=== PATIENT | male | born 1950 | race Caucasian/White ===

== ENCOUNTER 2019-01-19 13:08 | Inpatient (IN) | payer MEDICAID, OTHER ==
[~2019-01-19] VITALS: Ht 175.3 cm; Wt 95.6 kg
[2019-01-19 13:14] VITALS: Ht 175.3 cm; Wt 95.6 kg
[2019-01-19] MEDS ORDERED: CEFTRIAXONE 1 GM/50 ML (PMX) 50 ML IVPB STA (13:31)
[2019-01-19] MEDS ORDERED: SODIUM CHLORIDE 0.9% 1L BAG IV* STA (13:31)
[2019-01-19] MEDS ORDERED: ACETAMINOPHEN 325 MG TAB PO STA (13:31)
--- NOTE | 2019-01-19 13:46 | ERD ---
ER Documentation Chief Complaint Chief Complaint 3 DAYS AGO BACK PAIN, URINAY INCONTINENCE, WEAKNESS HPI 68-year-old male presents the emergency room complaining of generalized weakness. Patient states over the last 2 days he has been having a fever, dysuria and urinary frequency and significant weakness. He reports no chest pain, shortness of breath. He reports no focal weakness or numbness. Patient is not having urinary incontinence (as above in the nursing note), but is having urinary frequency. He also reports that 2 days ago he had back pain in the lower part of his back that is now resolved. ROS All systems reviewed and are negative except as per history of present illness. Medications Home Meds Reported Medications Losartan Potassium* (Losartan Potassium*) 50 Mg Tablet, 50 MG PO DAILY, TAB 01/19/19 Allergies Allergies: Coded Allergies: No Known Allergy (Unverified , 01/19/19) Physical Exam Vitals Vital Signs Date Temp Pulse Resp B/P (MAP) Pulse Ox O2 O2 Flow FiO2 Time Delivery Rate 01/19/19 101 18 125/83 97 Room Air 14:30 (97) 01/19/19 Nasal 2 13:40 Cannula 01/19/19 103.2 115 18 137/74 94 13:14 (95) Physical Exam GENERAL: Ill-appearing 68-year-old HEENT: Pupils equal, round, and reactive to light. EOMI. There is no scleral icterus. NECK: C-spine is soft and supple, there is no meningismus. There is no cervical lymphadenopathy. LUNGS: Clear to auscultation bilaterally. There are no rales, wheezes or rhonchi. HEART: Regular rate and rhythm, no murmurs, clicks, rubs or gallops. ABDOMEN: Soft, non-tender, non-distended. There are bowel sounds in all four quadrants. No rebound or guarding. EXTREMITIES: There is no peripheral cyanosis or edema. No focal swelling or erythema. Back: No midline spinal tenderness or evidence of abscess. NEURO: The patient moves all four extremities with 5/5 strength. Cranial nerves II - XII are intact. Normal gait. Alert and oriented SKIN: There is no apparent rash or petechiae. HEME/LYMPHATIC: There is no evidence of excessive bruising or lymphedema. PSYCHIATRIC: The patient does not appear anxious or depressed. Result Diagram: 01/19/19 1344 01/19/19 1344 Results 24 hrs Laboratory Tests Test 01/19/19 13:44 01/19/19 13:47 White Blood Count 8.7 10^3/ul Red Blood Count 4.63 10^6/ul Hemoglobin 14.6 g/dl Hematocrit 42.4 % Mean Corpuscular Volume 91.6 fl Mean Corpuscular Hemoglobin 31.5 pg Mean Corpuscular Hemoglobin Concent 34.4 g/dl Red Cell Distribution Width 12.8 % Platelet Count 151 10^3/UL Mean Platelet Volume 10.1 fl Immature Granulocytes % 0.700 % Neutrophils % 82.0 % Lymphocytes % 7.3 % Monocytes % 9.7 % Eosinophils % 0.0 % Basophils % 0.3 % Nucleated Red Blood Cells % 0.0 /100WBC Immature Granulocytes # 0.060 10^3/ul Neutrophils # 7.2 10^3/ul Lymphocytes # 0.6 10^3/ul Monocytes # 0.9 10^3/ul Eosinophils # 0.0 10^3/ul Basophils # 0.0 10^3/ul Nucleated Red Blood Cells # 0.0 10^3/ul Prothrombin Time 13.1 Sec Prothrombin Time Ratio 1.0 INR International Normalized Ratio 0.98 Activated Partial Thromboplast Time 30.6 Sec Urine Color VIOLET Urine Clarity CLOUDY Urine pH 5.0 Urine Specific [place] 1.028 Urine Ketones TRACE mg/dL Urine Nitrite NEGATIVE mg/dL Urine Bilirubin NEGATIVE mg/dL Urine Urobilinogen 1+ mg/dL Urine Leukocyte Esterase NEGATIVE Dav/ul Urine Microscopic RBC 28 /HPF Urine Microscopic WBC 4 /HPF Urine Mucus MODERATE /HPF Urine Hemoglobin NEGATIVE mg/dL Urine Glucose NEGATIVE mg/dL Urine Total Protein 2+ mg/dl Sodium Level 136 mmol/L Potassium Level 3.8 mmol/L Chloride Level 99 mmol/L Carbon Dioxide Level 26 mmol/L Anion Gap 11 Blood Urea Nitrogen 22 mg/dl Creatinine 1.17 mg/dl Est Glomerular Filtrat Rate mL/min > 60 mL/min Glucose Level 155 mg/dl Calcium Level 8.7 mg/dl Total Bilirubin 1.0 mg/dl Direct Bilirubin 0.00 mg/dl Indirect Bilirubin 1.0 mg/dl Aspartate Amino Transf (AST/SGOT) 69 IU/L Alanine Aminotransferase (ALT/SGPT) 52 IU/L Alkaline Phosphatase 49 IU/L Troponin I < 0.012 ng/ml Total Protein 7.8 g/dl Albumin 4.2 g/dl Globulin 3.60 g/dl Albumin/Globulin Ratio 1.16 POC Venous Lactate 1.5 mmol/L Current Medications Medications Dose Sig/Enrike Start Time Status Last (Trade) Ordered Route PRN Stop Time Admin Dose Reason Admin Sodium 2,840 ml BOLUS OVER 2 01/19/19 DC 01/19/19 Chloride HOURS STAT 13:31 13:50 (NS) IV* 01/19/19 13:33 650 mg ONCE STAT 01/19/19 DC 01/19/19 Acetaminophen PO 13:31 13:50 (Tylenol 01/19/19 13:33 Tab) Ceftriaxone 50 ml @ ONCE STAT 01/19/19 DC 01/19/19 Sodium 100 mls/hr IVPB 13:31 13:50 01/19/19 14:00 Procedures/MDM Patient was taken to a room, seen and evaluated. Comfort measures were ini tiated. Code sepsis was initiated Diagnostic tests were ordered and reviewed. 3 LEAD RHYTHM STRIP: Normal sinus rhythm without ectopy EK lead EKG reviewed by myself: Sinus tachycardia Leftward axis deviation, right bundle branch block Nonspecific ST changes throughout the EKG Impression: Abnormal EKG RADIOLOGY: Reviewed with the radiologist CONSULTATION: Hospitalist was notified for admission REEVALUATION: 1545: Diagnostic tests were appreciated including the negative troponin and abnormal chest x-ray. Antibiotics have been initiated for likely community-acquired pneumonia. On reassessment, patient remains hemodynamically stable with no chest pain or shortness of breath. Patient appears to have continued generalized weakness. After discussion of the diagnostic test with the family, decision was made for admission. MEDICAL DECISION MAKIN-year-old male presents to the emergency department generalized weakness and a fever. Diagnostic work-up focused on the possibility of urinary tract infection, pneumonia and other septic concerns. Overall, patient does have an abnormal chest x-ray concerning for possibility of pneumonia. His lactate is less than 2 and he does not appear to be severely septic as he remains hemodynamically stable. He also has a markedly abnormal EKG, but a negative troponin and no chest pain or shortness of breath and therefore I doubt very much this is an acute cardiac issue. Patient will be admitted to the hospital for further supportive management, IV antibiotics and further treatment. Departure Diagnosis: Primary Impression: Pneumonia Condition: ESTHER Woodward Jan 19, 2019 13:46
[2019-01-19] MEDS ORDERED: LOSA50TA14 PO (14:21)
[2019-01-19] MEDS ORDERED: ACETAMINOPHEN 325 MG TAB PO PRN (16:00)
[2019-01-19] MEDS ORDERED: ONDANSETRON 4 MG INJ IV PRN (16:00)
--- NOTE | 2019-01-19 16:35 | HP ---
Date/Time of Note Date/Time of Note DATE: 01/19/19 TIME: 16:35 Assessment/Plan VTE Prophylaxis Pharmacological prophylaxis: LMWH Lines/Catheters IV Catheter Type (from [facility]): Saline Lock Assessment/Plan Hospital Course 68-year-old male with comorbidities including hypertension and obesity who presented to the emergency room with generalized weakness and febrile illness with evidence of sepsis with febrile illness and tachycardia with underlying pul monary infiltrate evident on chest x-ray, who will be admitted to inpatient setting for further treatment and evaluation. 1. Sepsis with febrile illness and tachycardia, with underlying pulmonary i nfiltrate, present on admission. Continue the patient on antimicrobials. Pancultures have been obtained. Continue IV hydration. Monitor for early signs of septic shock. 2. Community-acquired pneumonia. Continue the patient on ceftriaxone plus Zithromax. Supplemental oxygen if needed. 3. Hypertension. Resume antihypertensives. 4. Obesity. BMI more than 30 kg/m. Obtain A1c and fasting lipid panel. Advised lifestyle modification. Plan: The patient will be admitted to inpatient telemetry floor. The patient will be started on a low-cholesterol diet. The patient will be started on DVT prophylaxis. The patient will remain a full code. Activities will be as tolerated. The rest of the patient's management will be based on the clinical course and the results of diagnostic studies. Based on the patient's clinical presentation, he most probably requires at least 1 midnight's stay for further management and evaluation of his clinical presentation. The patient was seen in collaboration with Dr. Adler. The patient's family was given a letter to the airline indicating that the patient is hospitalized and to allow him to postpone his scheduled travel on 01/20/2019. Result Diagram: 01/19/19 1344 01/19/19 1344 Results 24hrs Laboratory Tests Test 01/19/19 13:44 01/19/19 13:47 01/19/19 15:56 White Blood Count 8.7 Red Blood Count 4.63 L Hemoglobin 14.6 Hematocrit 42.4 Mean Corpuscular Volume 91.6 Mean Corpuscular Hemoglobin 31.5 Mean Corpuscular Hemoglobin Concent 34.4 Red Cell Distribution Width 12.8 Platelet Count 151 Mean Platelet Volume 10.1 Immature Granulocytes % 0.700 H Neutrophils % 82.0 H Lymphocytes % 7.3 L Monocytes % 9.7 Eosinophils % 0.0 Basophils % 0.3 Nucleated Red Blood Cells % 0.0 Immature Granulocytes # 0.060 H Neutrophils # 7.2 Lymphocytes # 0.6 L Monocytes # 0.9 Eosinophils # 0.0 Basophils # 0.0 Nucleated Red Blood Cells # 0.0 Prothrombin Time 13.1 Prothrombin Time Ratio 1.0 INR International Normalized Ratio 0.98 Activated Partial Thromboplast Time 30.6 Urine Color VIOLET Urine Clarity CLOUDY A Urine pH 5.0 Urine Specific [place] 1.028 Urine Ketones TRACE A Urine Nitrite NEGATIVE Urine Bilirubin NEGATIVE Urine Urobilinogen 1+ H Urine Leukocyte Esterase NEGATIVE Urine Microscopic RBC 28 H Urine Microscopic WBC 4 Urine Mucus MODERATE Urine Hemoglobin NEGATIVE Urine Glucose NEGATIVE Urine Total Protein 2+ H Sodium Level 136 Potassium Level 3.8 Chloride Level 99 Carbon Dioxide Level 26 Anion Gap 11 Blood Urea Nitrogen 22 H Creatinine 1.17 Est Glomerular Filtrat Rate mL/min > 60 Glucose Level 155 Calcium Level 8.7 Total Bilirubin 1.0 Direct Bilirubin 0.00 Indirect Bilirubin 1.0 Aspartate Amino Transf (AST/SGOT) 69 H Alanine Aminotransferase (ALT/SGPT) 52 Alkaline Phosphatase 49 Troponin I < 0.012 Total Protein 7.8 Albumin 4.2 Globulin 3.60 H Albumin/Globulin Ratio 1.16 POC Venous Lactate 1.5 Lactic Acid Level 1.4 HPI/ROS Admit Date/Time Admit Date/Time Hx of Present Illness Reason for admission : Generalized weakness, febrile illness. Infiltrate on chest x-ray. This is a 68-year-old male with past medical history of hypertension. [facility] and he is scheduled to go back to [place] tomorrow on 01/20/2019. He was visiting his family in [place]. The patient started having back pain over the past 3 days and associated urinary frequency, urgency, and finally incontinence. The patient tried acupuncture therapy with relief in his back pain. But his fevers and the problem urination persisted. The patient also became progressively weak to the point where he could not walk because of weakness. The patient denied any headache. He was complaining of fevers and chills. As per the family he had a cough for the past few days. The patient denied any chest pain. The patient denied any nausea or vomiting. He denied any diarrhea, abdominal pain, hematochezia, or melena. He denied any neck rigidity. He denied any sensitivity to light or sounds. In the emergency room, the patient was noticed to be febrile with a temperature of 103.2. He was noted to be tachycardic. The patient underwent a chest x-ray that was showing a left perihilar infiltrate suggesting pneumonia. The patient underwent a CT scan of the abdomen and pelvis that was negative for any urolithiasis, obstructive uropathy, diverticulitis, or appendicitis. The patient's urinalysis was positive for microscopic RBC within negative nitrite and negative leukocyte esterase. He was treated with IV fluid bolus, Tylenol oral, and a single dose of ceftriaxone. Of note, the patient's twelve-lead EKG that was done in the emergency room showed the reading of "acute [place]." However, after reviewing with a order picker, this EKG showed a right bundle branch block and isolated ST depression. The patient's troponins were negative. ROS Constitutional: chills, fatigue, febrile Eyes: no complaints ENT: no complaints Respiratory: cough Cardiovascular: no complaints Gastrointestinal: decreased appetite Genitourinary: other (Frequency, incontinence) Musculoskeletal: no complaints Skin: no complaints Neurologic: no complaints Endocrine: polyuria Lymphatic: no complaints Psychological: no complaints Immunologic: no complaints PMH/Family/Social Past Medical History 1. Palpitations. 2. Hypertension. 3. Obesity. Medications Current Medications Ondansetron HCl (Zofran Inj) 4 mg BRIDGE ORDER PRN IV NAUSEA/VOMITING; Start 01/19/19 at 16:00; Stop 01/20/19 at 15:59 Acetaminophen (Tylenol Tab) 650 mg ER BRIDGE PRN PO .MILD PAIN 1-3 OR TEMP; Start 01/19/19 at 16:00; Stop 01/20/19 at 15:59 Coded Allergies: No Known Allergy (Unverified , 01/19/19) Past Surgical History Past Surgical Hx: no surgical history Social History The patient is visiting from [place]. 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 Alcohol Use: none Smoking Status: Former smoker Drug Use: none Exam/Review of Systems Vital Signs Vitals Vital Signs Date Temp Pulse Resp B/P (MAP) Pulse Ox O2 O2 Flow FiO2 Time Delivery Rate 01/19/19 101 18 125/83 97 Room Air 14:30 (97) 01/19/19 2 13:40 01/19/19 103.2 13:14 Exam Exam General: Obese, 68 year-old male lying in bed in no apparent distress. HEENT: Normocephalic, atraumatic. Eyes: Anicteric sclerae, conjunctivae clear. ENT: Nasal septum midline, oral mucosa is dry. Neck supple. Short and obese. Respiratory: Bilaterally diminished breath sounds. No use of accessory muscles of respiration. No adventitious breath sounds. Cardiovascular: S1, S2 heard. Regular rate and rhythm. Abdomen: Soft, nontender, and nondistended. Bowel sounds positive in all 4 quadrants. Genitourinary: Deferred. Extremities: No cyanosis, no clubbing, no edema. Peripheral pulses palpable. Neurologic: Cranial nerves II through XII grossly intact. The patient is awake, alert, and oriented. Skin: Normal skin turgor. No skin rashes. Additional Comments CXR IMPRESSION: Patchy left perihilar opacities suggesting pneumonia in the setting of reported sepsis. Calcified atherosclerosis of the thoracic aorta. CT Abdomen & Pelvis IMPRESSION: No evidence of urolithiasis, obstructive uropathy, diverticulitis or appendicitis. Diverticulosis. Fatty liver. ALON TOLEDO NP Jan 19, 2019 16:35
[2019-01-19] MEDS ORDERED: NACL 0.9% 3 ML SYG IV SCH (17:00)
[2019-01-19] MEDS ORDERED: SOD CHLORIDE 0.9% 1,000 ML IV SCH (17:00)
[2019-01-19] MEDS: AZITHROMYCIN 500MG/NS (PMX) 250 ML IVPB SCH (18:06)
[2019-01-19] MEDS ORDERED: IBUPROFEN 600 MG TAB PO ONE (19:00)
[2019-01-19 23:30] VITALS: BP 99/59; PULSE 75; RESP 18
[2019-01-20] MEDS: ONDANSETRON 4 MG INJ IV PRN (00:52)
[2019-01-20 04:11] VITALS: BP 139/76; PULSE 92; RESP 20
[2019-01-20 07:18] VITALS: BP 119/61; PULSE 85; RESP 18
[2019-01-20] MEDS: LOSARTAN 50 MG TAB PO SCH (08:15)
[2019-01-20] MEDS: ENOXAPARIN 40 MG/0.4 ML SYG SC SCH (08:19)
[2019-01-20 11:35] VITALS: BP 158/82; PULSE 96; RESP 20
[2019-01-20] MEDS ORDERED: CEFTRIAXONE 1 GM/50 ML (PMX) 50 ML IVPB SCH (14:00)
--- NOTE | 2019-01-20 15:37 | PN ---
Date/Time of Note Date/Time of Note DATE: 01/20/19 TIME: 15:33 Assessment/Plan VTE Prophylaxis Risk score (from [facility])>0 risk: 2 SCD applied (from [facility]): No SCD contraindicated: other Pharmacological prophylaxis: LMWH Lines/Catheters [facility] Saline Lock Urinary Cath still in place: No Assessment/Plan Hospital Course Assessment and plan 1. Sepsis. - Likely secondary to community-acquired pneumonia. - Continue antibiotic. - Patient improving. - Antipyretics as needed. - Follow-up on cultures. 2. Community-acquired pneumonia. - continue abx 3. Hypertension. - Continue antihypertensives. 4. Obesity. - Weight reduction was advised Disposition plan. Appears to be improving. Continue antibiotics. Follow-up on cultures. Anticipate discharge within the next 24 hours from stable. Discussed POC with Dr. Prajapati Result Diagram: 01/20/19 0530 01/20/19 0530 Results 24hrs Laboratory Tests Test 01/19/19 15:56 01/19/19 21:02 01/20/19 05:30 Lactic Acid Level 1.4 0.9 Troponin I 0.018 0.029 White Blood Count 7.3 Red Blood Count 3.99 L Hemoglobin 12.5 L Hematocrit 36.9 L Mean Corpuscular Volume 92.5 Mean Corpuscular Hemoglobin 31.3 Mean Corpuscular Hemoglobin Concent 33.9 Red Cell Distribution Width 13.0 Platelet Count 124 L Mean Platelet Volume 10.2 Immature Granulocytes % 1.000 H Neutrophils % 87.0 H Lymphocytes % 5.9 L Monocytes % 5.7 Eosinophils % 0.1 Basophils % 0.3 Nucleated Red Blood Cells % 0.0 Immature Granulocytes # 0.070 H Neutrophils # 6.4 Lymphocytes # 0.4 L Monocytes # 0.4 Eosinophils # 0.0 Basophils # 0.0 Nucleated Red Blood Cells # 0.0 Sodium Level 139 Potassium Level 3.8 Chloride Level 109 # Carbon Dioxide Level 22 Anion Gap 8 Blood Urea Nitrogen 20 Creatinine 0.87 Est Glomerular Filtrat Rate mL/min > 60 Glucose Level 124 Calcium Level 7.9 L Phosphorus Level 2.6 Magnesium Level 2.4 Total Bilirubin 0.7 Direct Bilirubin 0.00 Indirect Bilirubin 0.7 Aspartate Amino Transf (AST/SGOT) 59 H Alanine Aminotransferase (ALT/SGPT) 48 Alkaline Phosphatase 42 Creatine Kinase 739 H Creatine Kinase Index 0.3 Creatinine Kinase MB (Mass) 2.44 H Total Protein 6.4 # Albumin 3.2 #L Globulin 3.20 Albumin/Globulin Ratio 1.00 Triglycerides Level 136 Cholesterol Level 145 LDL Cholesterol, Calculated 97 HDL Cholesterol 21 L Cholesterol/HDL Ratio 6.9 Procalcitonin 0.42 H Subjective 24 Hr Interval Summary Free Text/Dictation reports better breathing. family at bedside. Exam/Review of Systems Exam Vitals Vital Signs Date Temp Pulse Resp B/P (MAP) Pulse Ox O2 O2 Flow FiO2 Time Delivery Rate 01/20/19 98.0 96 20 158/82 97 Room Air 11:35 (107) 01/19/19 2 13:40 Intake and Output 01/19/19 01/19/19 01/20/19 1515:00 23:00 07:00 IntakeIntake Total 100 ml OutputOutput Total 950 ml BalanceBalance -850 ml Constitutional: alert, oriented Psych: nl mood/affect Head: normocephalic Neck: supple, non-tender Respiratory: other (minimally congested left lung field ) Cardiovascular: regular rate and rhythm Gastrointestinal: soft, non-tender 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: PODIATRY TEACHER II-XII intact, nl mental status, nl speech Results Results 24hrs Laboratory Tests Test 01/19/19 15:56 01/19/19 21:02 01/20/19 05:30 Lactic Acid Level 1.4 0.9 Troponin I 0.018 0.029 White Blood Count 7.3 Red Blood Count 3.99 L Hemoglobin 12.5 L Hematocrit 36.9 L Mean Corpuscular Volume 92.5 Mean Corpuscular Hemoglobin 31.3 Mean Corpuscular Hemoglobin Concent 33.9 Red Cell Distribution Width 13.0 Platelet Count 124 L Mean Platelet Volume 10.2 Immature Granulocytes % 1.000 H Neutrophils % 87.0 H Lymphocytes % 5.9 L Monocytes % 5.7 Eosinophils % 0.1 Basophils % 0.3 Nucleated Red Blood Cells % 0.0 Immature Granulocytes # 0.070 H Neutrophils # 6.4 Lymphocytes # 0.4 L Monocytes # 0.4 Eosinophils # 0.0 Basophils # 0.0 Nucleated Red Blood Cells # 0.0 Sodium Level 139 Potassium Level 3.8 Chloride Level 109 # Carbon Dioxide Level 22 Anion Gap 8 Blood Urea Nitrogen 20 Creatinine 0.87 Est Glomerular Filtrat Rate mL/min > 60 Glucose Level 124 Calcium Level 7.9 L Phosphorus Level 2.6 Magnesium Level 2.4 Total Bilirubin 0.7 Direct Bilirubin 0.00 Indirect Bilirubin 0.7 Aspartate Amino Transf (AST/SGOT) 59 H Alanine Aminotransferase (ALT/SGPT) 48 Alkaline Phosphatase 42 Creatine Kinase 739 H Creatine Kinase Index 0.3 Creatinine Kinase MB (Mass) 2.44 H Total Protein 6.4 # Albumin 3.2 #L Globulin 3.20 Albumin/Globulin Ratio 1.00 Triglycerides Level 136 Cholesterol Level 145 LDL Cholesterol, Calculated 97 HDL Cholesterol 21 L Cholesterol/HDL Ratio 6.9 Procalcitonin 0.42 H Medications Medication Current Medications Ondansetron HCl (Zofran Inj) 4 mg BRIDGE ORDER PRN IV NAUSEA/VOMITING; Start 01/19/19 at 16:00; Stop 01/20/19 at 15:59 Acetaminophen (Tylenol Tab) 650 mg ER BRIDGE PRN PO .MILD PAIN 1-3 OR TEMP Last administered on 01/20/19at 03:44; Admin Dose 650 MG; Start 01/19/19 at 16:00; Stop 01/20/19 at 15:59 IV Flush (NS 3 ml) 3 ml PER PROTOCOL IV ; Start 01/19/19 at 17:00 Ondansetron HCl (Zofran Inj) 4 mg Q6H PRN IV NAUSEA/VOMITING Last administered on 01/20/19at 00:52; Admin Dose 4 MG; Start 01/19/19 at 17:00 Enoxaparin Sodium (Lovenox) 40 mg DAILY SC Last administered on 01/20/19at 08:19; Admin Dose 40 MG; Start 01/20/19 at 09:00 Azithromycin 250 ml @ 250 mls/hr Q24H IVPB Last administered on 01/19/19at 18:06; Admin Dose 250 MLS/HR; Start 01/19/19 at 17:00 Ceftriaxone Sodium 50 ml @ 100 mls/hr Q24H IVPB Last administered on 01/20/19at 13:27; Admin Dose 100 MLS/HR; Start 01/20/19 at 14:00 Losartan Potassium (Cozaar) 50 mg DAILY PO Last administered on 01/20/19at 08:15; Admin Dose 50 MG; Start 01/20/19 at 09:00 Ibuprofen (Motrin) 200 mg Q6H PRN PO MILD PAIN(1-3) OR TEMP>38C; Start 01/19/19 at 18:30 MICHAEL PRADO NP Jan 20, 2019 15:37
[2019-01-20 15:52] VITALS: BP 182/88; PULSE 110; RESP 20
[2019-01-20] MEDS: IBUPROFEN 200 MG TAB PO PRN ×2 (16:04→23:41)
[2019-01-20] MEDS ORDERED: LEVALBUTEROL (NEB) 1.25 MG/0.5 ML AMP HHN PRN (16:30)
[2019-01-20 16:59] VITALS: BP 141/86; PULSE 109
[2019-01-20] MEDS: AZITHROMYCIN 500MG/NS (PMX) 250 ML IVPB SCH (18:13)
[2019-01-20 20:00] VITALS: BP 123/63; PULSE 95; RESP 20
[2019-01-20] MEDS: IPRATROPIUM (NEB) 0.5 MG/2.5 ML AMP HHN SCH (20:14)
[2019-01-20] MEDS: LEVALBUTEROL (NEB) 1.25 MG/0.5 ML AMP HHN SCH (20:14)
--- NOTE | 2019-01-20 21:53 | CONS ---
DATE OF ADMISSION: 01/19/2019 DATE OF CONSULTATION: 01/20/2019 TYPE OF CONSULTATION: Infectious Disease. REASON FOR CONSULTATION: Antibiotic management. HISTORY OF PRESENT ILLNESS: Vasile Boswell is a 68-year-old male who was admitted on the complaining of generalized weakness. He complains of 3 days of back pain, urinary incontinence and weakness. Ov er the past 2 days, he has been having a fever, dysuria and urinary frequency. He has no chest pain or shortness of breath. He is not having urinary incontinence, but is having frequency. On admissio n, his white count was 8.7, H and H 14.6 and 42.4, platelet count 151,000. BUN and creatinine 22/1.1 7, glucose of 155 with 82% neutrophils. His urinalysis is negative for leukocyte esterase and he was started on ceftriaxone. The patient's diagnostic workup focused on urinary tract infection of the s eptic concerns. The patient has an abnormal chest x-ray with a possibility of pneumonia. His chest x-ray showed patchy left perihilar opacities. Repeat chest x-ray showed interval increase in left up per lobe consolidation, scattered atelectasis versus minimal infiltrates in the left lower lobe, elev ated right hemidiaphragm. A CT scan of the abdomen and pelvis showed no evidence of urolithiasis, ob structive uropathy, diverticulitis or appendicitis. The patient has sepsis, likely secondary to comm unity-acquired pneumonia. He is on antibiotic therapy. He is hypertensive and obese, improving at t his point. ANCILLARY LABORATORY DATA: White count today 7.3. MEDICATIONS: 1. Azithromycin. 2. Ceftriaxone. PLAN: We will continue him on this therapy. I will dictate my findings to the hospitalist. Dictated By: SANGITA MARTE MD, JD/PERNELL Conf#: [id number] DID#: [id number]
[2019-01-21] VITALS (7 sets, daily range): BP systolic 105–164; BP diastolic 65–92; PULSE 79–104; RESP 18–20
[2019-01-21] MEDS: ONDANSETRON 4 MG INJ IV PRN (02:54)
[2019-01-21] MEDS: IPRATROPIUM (NEB) 0.5 MG/2.5 ML AMP HHN SCH ×4 (08:16→20:52)
[2019-01-21] MEDS: LEVALBUTEROL (NEB) 1.25 MG/0.5 ML AMP HHN SCH ×4 (08:16→20:51)
[2019-01-21] MEDS: IBUPROFEN 200 MG TAB PO PRN ×2 (08:33→16:12)
[2019-01-21] MEDS: LOSARTAN 50 MG TAB PO SCH (08:34)
[2019-01-21] MEDS: ENOXAPARIN 40 MG/0.4 ML SYG SC SCH (09:36)
--- NOTE | 2019-01-21 14:09 | PN ---
Date/Time of Note Date/Time of Note DATE: 01/21/19 TIME: 14:05 Assessment/Plan VTE Prophylaxis Risk score (from [facility] [place])>0 risk: 5 SCD applied (from [facility] [place]): No SCD contraindicated: other Pharmacological prophylaxis: LMWH Lines/Catheters IV [facility] Type (from [facility] Saline Lock Urinary Cath still in place: No Assessment/Plan Hospital Course Assessment and plan 1. Sepsis. - Likely secondary to community-acquired pneumonia. - Continue antibiotic. - with worse chest imaging - Antipyretics as needed. - Follow-up on cultures. - ID consult following 2. Community-acquired pneumonia. - continue abx - trade specialist consulted 3. respiratory failure secondary to #2 - continue with breathing tx - IS/CPT 3. Hypertension. - Continue antihypertensives. 4. Obesity. - Weight reduction was advised Disposition plan. Continue antibiotics. with worse breathing. continue breathing tx. f/u pulmonary recommendations. antipyretics for fever. monitor for improvement Discussed POC with Dr. Prajapati Result Diagram: 01/21/19 0507 01/21/19 0507 Results 24hrs Laboratory Tests Test 01/20/19 16:39 01/20/19 16:56 01/20/19 17:14 01/21/19 05:07 Lactic Acid Level 1.6 Bedside Glucose 128 Troponin I 0.019 White Blood Count 6.7 Red Blood Count 4.36 L Hemoglobin 13.6 L Hematocrit 39.9 L Mean Corpuscular Volume 91.5 Mean Corpuscular 31.2 Hemoglobin Mean Corpuscular 34.1 Hemoglobin Concent Red Cell Distribution 12.9 Width Platelet Count 138 L Mean Platelet Volume 10.7 H Immature Granulocytes % 1.200 H Neutrophils % 81.7 H Lymphocytes % 11.3 L Monocytes % 5.4 Eosinophils % 0.1 Basophils % 0.3 Nucleated Red Blood 0.0 Cells % Immature Granulocytes # 0.080 H Neutrophils # 5.5 Lymphocytes # 0.8 Monocytes # 0.4 Eosinophils # 0.0 Basophils # 0.0 Nucleated Red Blood 0.0 Cells # Sodium Level 136 Potassium Level 3.9 Chloride Level 103 Carbon Dioxide Level 25 Anion Gap 8 Blood Urea Nitrogen 14 Creatinine 0.82 Est Glomerular Filtrat > 60 Rate mL/min Glucose Level 120 Calcium Level 8.3 L Subjective 24 Hr Interval Summary Free Text/Dictation Reports slightly better breathing from yesterday. Exam/Review of Systems Exam Vitals Vital Signs Date Temp Pulse Resp B/P (MAP) Pulse Ox O2 O2 Flow FiO2 Time Delivery Rate 01/21/19 86 18 95 21 13:05 01/21/19 99.6 115/65 Room Air 11:46 (82) 01/19/19 2 13:40 Intake and Output 01/20/19 01/20/19 01/21/19 1515:00 23:00 07:00 IntakeIntake Total 410 ml 800 ml OutputOutput Total 200 ml 370 ml 1050 ml BalanceBalance 210 ml -370 ml -250 ml Exam Constitutional: alert, oriented Psych: nl mood/affect Head: normocephalic Neck: supple, non-tender Respiratory: other (minimally congested left lung field ) Cardiovascular: regular rate and rhythm Gastrointestinal: soft, non-tender 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: 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 II-XII 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, nl mental status, nl speech Results Results 24hrs Laboratory Tests Test 01/20/19 16:39 01/20/19 16:56 01/20/19 17:14 01/21/19 05:07 Lactic Acid Level 1.6 Bedside Glucose 128 Troponin I 0.019 White Blood Count 6.7 Red Blood Count 4.36 L Hemoglobin 13.6 L Hematocrit 39.9 L Mean Corpuscular Volume 91.5 Mean Corpuscular 31.2 Hemoglobin Mean Corpuscular 34.1 Hemoglobin Concent Red Cell Distribution 12.9 Width Platelet Count 138 L Mean Platelet Volume 10.7 H Immature Granulocytes % 1.200 H Neutrophils % 81.7 H Lymphocytes % 11.3 L Monocytes % 5.4 Eosinophils % 0.1 Basophils % 0.3 Nucleated Red Blood 0.0 Cells % Immature Granulocytes # 0.080 H Neutrophils # 5.5 Lymphocytes # 0.8 Monocytes # 0.4 Eosinophils # 0.0 Basophils # 0.0 Nucleated Red Blood 0.0 Cells # Sodium Level 136 Potassium Level 3.9 Chloride Level 103 Carbon Dioxide Level 25 Anion Gap 8 Blood Urea Nitrogen 14 Creatinine 0.82 Est Glomerular Filtrat > 60 Rate mL/min Glucose Level 120 Calcium Level 8.3 L Medications Medication Current Medications IV Flush (NS 3 ml) 3 ml PER PROTOCOL IV ; Start 01/19/19 at 17:00 Ondansetron HCl (Zofran Inj) 4 mg Q6H PRN IV NAUSEA/VOMITING Last administered on 7/2/19at 02:54; Admin Dose 4 MG; Start 01/19/19 at 17:00 Enoxaparin Sodium (Lovenox) 40 mg DAILY SC Last administered on 01/21/19 09:36; Admin Dose 40 MG; Start 01/20/19 at 09:00 Azithromycin 250 ml @ 250 mls/hr Q24H IVPB Last administered on 01/20/19 18:13; Admin Dose 250 MLS/HR; Start 01/19/19 at 17:00 Losartan Potassium (Cozaar) 50 mg DAILY PO Last administered on 01/21/19 08:34; Admin Dose 50 MG; Start 01/20/19 at 09:00 Ibuprofen (Motrin) 200 mg Q6H PRN PO MILD PAIN(1-3) OR TEMP>38C Last administered on 01/21/19 08:33; Admin Dose 200 MG; Start 01/19/19 at 18:30 Levalbuterol (Xopenex Neb) 1.25 mg Q4H RESP THERAPY PRN HHN sob; Start 01/20/19 at 16:30 Ipratropium [place] (Atrovent 0.02% (Neb)) 0.5 mg Q4HWA RESP THERAPY HHN Last administered on 01/21/19 12:55; Admin Dose 0.5 MG; Start 01/20/19 at 17:00 Levalbuterol (Xopenex Neb) 1.25 mg Q4HWA RESP THERAPY HHN Last administered on 01/21/19 12:55; Admin Dose 1.25 MG; Start 01/20/19 at 17:00 Clonidine (Catapres) 0.1 mg Q4H PRN PO sbp>160; Start 01/20/19 at 16:30 Cefepime HCl 50 ml @ 100 mls/hr Q12 IVPB ; Start 01/21/19 at 21:00 MICHAEL PRADO NP Jan 21, 2019 14:09
--- NOTE | 2019-01-21 14:47 | CONS ---
Assessment/Plan Assessment/Plan Hospital Course (Demo Recall) Patient is awake looks comfortable spiked fever of 102.8 this morning WBC 6.7 platelets 138 neutrophils 81.7 BUN 14 creatinine 0.82 Blood cultures since admission negative urine culture grew E. coli Chest x-ray revealed left upper lobe consolidation Antimicrobials: Cefepime, Zithromax Physical examination: Well-developed obese elderly man who is awake in no distress. Head atraumatic normocephalic neck is supple chest rise symmetrical breath sounds diminished bases. Heart: S1-S2. Abdomen obese soft bowel sounds present. Extremities without cyanosis. Assessment: 1. Sepsis, present on admission 2. UTI 3. Pneumonia 4. Hypertension Plan: Clinically stable. Pending repeat blood cultures, continue antibiotics, follow repeat chest x-ray Consultation Date/Type/Reason Admit Date/Time Jan 19, 2019 at 15:53 Initial Consult Date Type of Consult id Date/Time of Note DATE: 01/21/19 TIME: 14:47 Exam/Review of Systems Exam Vitals Vital Signs Date Temp Pulse Resp B/P (MAP) Pulse Ox O2 O2 Flow FiO2 Time Delivery Rate 01/21/19 86 18 95 21 13:05 01/21/19 99.6 115/65 Room Air 11:46 (82) 01/19/19 2 13:40 Intake and Output 01/20/19 01/20/19 01/21/19 1515:00 23:00 07:00 IntakeIntake Total 410 ml 800 ml OutputOutput Total 200 ml 370 ml 1050 ml BalanceBalance 210 ml -370 ml -250 ml Results Result Diagram: 01/21/19 0507 01/21/19 0507 Results 24hrs Laboratory Tests Test 01/20/19 16:39 01/20/19 16:56 01/20/19 17:14 01/21/19 05:07 Lactic Acid Level 1.6 Bedside Glucose 128 Troponin I 0.019 White Blood Count 6.7 Red Blood Count 4.36 L Hemoglobin 13.6 L Hematocrit 39.9 L Mean Corpuscular Volume 91.5 Mean Corpuscular 31.2 Hemoglobin Mean Corpuscular 34.1 Hemoglobin Concent Red Cell Distribution 12.9 Width Platelet Count 138 L Mean Platelet Volume 10.7 H Immature Granulocytes % 1.200 H Neutrophils % 81.7 H Lymphocytes % 11.3 L Monocytes % 5.4 Eosinophils % 0.1 Basophils % 0.3 Nucleated Red Blood 0.0 Cells % Immature Granulocytes # 0.080 H Neutrophils # 5.5 Lymphocytes # 0.8 Monocytes # 0.4 Eosinophils # 0.0 Basophils # 0.0 Nucleated Red Blood 0.0 Cells # Sodium Level 136 Potassium Level 3.9 Chloride Level 103 Carbon Dioxide Level 25 Anion Gap 8 Blood Urea Nitrogen 14 Creatinine 0.82 Est Glomerular Filtrat > 60 Rate mL/min Glucose Level 120 Calcium Level 8.3 L Medications Medication Current Medications IV Flush (NS 3 ml) 3 ml PER PROTOCOL IV ; Start 01/19/19 at 17:00 Ondansetron HCl (Zofran Inj) 4 mg Q6H PRN IV NAUSEA/VOMITING Last administered on 01/21/19 02:54; Admin Dose 4 MG; Start 01/19/19 at 17:00 Enoxaparin Sodium (Lovenox) 40 mg DAILY SC Last administered on 01/21/19at 09:36; Admin Dose 40 MG; Start 01/20/19 at 09:00 Azithromycin 250 ml @ 250 mls/hr Q24H IVPB Last administered on 01/20/19at 18:13; Admin Dose 250 MLS/HR; Start 01/19/19 at 17:00 Losartan Potassium (Cozaar) 50 mg DAILY PO Last administered on 01/21/19 08:34; Admin Dose 50 MG; Start 01/20/19 at 09:00 Ibuprofen (Motrin) 200 mg Q6H PRN PO MILD PAIN(1-3) OR TEMP>38C Last administered on 01/21/19 08:33; Admin Dose 200 MG; Start 01/19/19 at 18:30 Levalbuterol (Xopenex Neb) 1.25 mg Q4H RESP THERAPY PRN HHN sob; Start 01/20/19 at 16:30 Ipratropium [place] (Atrovent 0.02% (Neb)) 0.5 mg Q4HWA RESP THERAPY HHN Last administered on 01/21/19at 12:55; Admin Dose 0.5 MG; Start 01/20/19 at 17:00 Levalbuterol (Xopenex Neb) 1.25 mg Q4HWA RESP THERAPY HHN Last administered on 01/21/19 12:55; Admin Dose 1.25 MG; Start 01/20/19 at 17:00 Clonidine (Catapres) 0.1 mg Q4H PRN PO sbp>160; Start 01/20/19 at 16:30 Cefepime HCl 50 ml @ 100 mls/hr Q12 IVPB ; Start 01/21/19 at 21:00 BARRON GRAHAM NP Jan 21, 2019 14:47
--- NOTE | 2019-01-21 14:59 | CONS ---
DATE OF ADMISSION: 01/19/2019 DATE OF CONSULTATION: 01/21/2019 TYPE OF CONSULTATION: Pulmonary. REASON FOR CONSULTATION: Shortness of breath. Thank you, Dr. Rocha, for this consultation. HISTORY OF PRESENT ILLNESS: This is a 68-year-old gentleman with no significant respiratory problems who comes in with several-day history of increasing cough, congestion, respiratory distress, found t o have a left upper lobe infiltrate with persistent fevers, but interestingly no significant leukocyt osis. The patient denies any recent travel history. However, he is from [place] and has been in the [place] for approximately 1 month. Denies any prior history of TB or TB exposure. On admission, as stated, the patient has had persistent fever, left upper lobe infiltrate. PAST MEDICAL HISTORY: As above. MEDICATIONS: Per chart. ALLERGIES: None. SOCIAL HISTORY: He is a nonsmoker, no alcohol, no history of drug use. FAMILY HISTORY: Noncontributory. SYSTEMS REVIEW: A 12-point review of systems was negative other than that mentioned above. PHYSICAL EXAMINATION: GENERAL: Elderly-appearing gentleman, appears comfortable at rest, no acute distress. VITAL SIGNS: Currently afebrile, pulse is 86, T-max is 102.8, blood pressure 115/65. NECK: Supple. No JVD or lymphadenopathy. CARDIAC: S1, S2, no added sounds or murmurs. CHEST: Diminished air entry bilaterally. ABDOMEN: Soft, nontender. No guarding or rebound. EXTREMITIES: No cyanosis, clubbing or edema. NEUROLOGIC: Generalized weakness. LABORATORIES: White count 6.7, hemoglobin 13.6, platelets 138. BUN 14, creatinine 0.82. Procalcito gabby 0.42. DIAGNOSTIC DATA: Chest x-ray shows left upper lobe infiltrates. IMPRESSION AND PLAN: Concern for possible atypical pneumonia given absence of leukocytosis and signi ficant upper lobe infiltrate. The differential does include fungal versus mycobacterial TB. PLAN: The patient will require: 1. Broadening of antibiotics. Agree with addition of cefepime. 2. Trial of steroids for possible r bronchiolitis obliterans organizing pneumonia. 3. Serology including coccidioidomycosis, Quantiferon Gold, Aspergillus precipitins and HIV testing. Dictated By: CHLOE HICKEY/PERNELL Conf#: [id number] DID#: [id number] CC: CARLOTA WATERS MD;*EndCC*
[2019-01-21] MEDS: METHYLPREDNISOLONE 40 MG INJ IV SCH ×2 (16:12→21:00)
[2019-01-21] MEDS: AZITHROMYCIN 500MG/NS (PMX) 250 ML IVPB SCH (18:14)
[2019-01-21] MEDS: CEFEPIME 1GM/50 ML (PMX) 50 ML IVPB SCH (21:00)
[2019-01-22] MEDS: METHYLPREDNISOLONE 40 MG INJ IV SCH ×4 (00:40→17:18)
[2019-01-22 03:39] VITALS: BP 113/74; PULSE 75; RESP 18
[2019-01-22 07:45] VITALS: BP 132/81; PULSE 93; RESP 19
[2019-01-22] MEDS: LOSARTAN 50 MG TAB PO SCH (08:54)
[2019-01-22] MEDS: CEFEPIME 1GM/50 ML (PMX) 50 ML IVPB SCH ×2 (08:54→20:29)
[2019-01-22] MEDS: IPRATROPIUM (NEB) 0.5 MG/2.5 ML AMP HHN SCH ×4 (09:00→19:45)
[2019-01-22] MEDS: LEVALBUTEROL (NEB) 1.25 MG/0.5 ML AMP HHN SCH ×4 (09:00→19:45)
[2019-01-22] MEDS: ENOXAPARIN 40 MG/0.4 ML SYG SC SCH (09:43)
[2019-01-22 11:54] VITALS: BP 132/78; PULSE 78; RESP 18
--- NOTE | 2019-01-22 12:37 | PN ---
Date/Time of Note Date/Time of Note DATE: 01/22/19 TIME: 12:33 Assessment/Plan VTE Prophylaxis Risk score (from [facility] [place])>0 risk: 4 SCD applied (from [facility] [place]): Yes Pharmacological prophylaxis: LMWH Lines/Catheters IV Catheter Type (from [facility]): Saline Lock Urinary Cath still in place: No Assessment/Plan Hospital Course Assessment and plan 1. Sepsis. - Likely secondary to community-acquired pneumonia. - Continue antibiotic. -- Antipyretics as needed. - Follow-up on cultures. - ID consult following 2. Community-acquired pneumonia. - continue abx - rope cutter following 3. respiratory failure secondary to #2 - continue with breathing tx - IS/CPT - CT scan of chest: There is left upper lobe patchy consolidation with associated air bronchograms. This is concerning for infectious process - f/u rope cutter recommendations 3. Hypertension. - Continue antihypertensives. 4. Obesity. - Weight reduction was advised Disposition plan. Continue antibiotics. titrate down o2. Await further improvement of respiratory status Discussed POC with Dr. Prajapati Result Diagram: 01/21/19 0507 01/21/19 0507 Subjective 24 Hr Interval Summary Free Text/Dictation sitting in chair, still reports dyspnea on exertion Exam/Review of Systems Exam Vitals Vital Signs Date Temp Pulse Resp B/P (MAP) Pulse Ox O2 O2 Flow FiO2 Time Delivery Rate 01/22/19 97.7 78 18 132/78 96 11:54 (96) 01/22/19 Room Air 03:39 01/21/19 21 20:52 01/19/19 2 13:40 Intake and Output 01/21/19 01/21/19 01/22/19 1515:00 23:00 07:00 IntakeIntake Total 480 ml 700 ml 240 ml OutputOutput Total 300 ml 200 ml 300 ml BalanceBalance 180 ml 500 ml -60 ml Exam Constitutional: alert, oriented Psych: nl mood/affect Head: normocephalic Neck: supple, non-tender Respiratory: no obvious wheezing/rhonchi Cardiovascular: regular rate and rhythm Gastrointestinal: soft, non-tender 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: 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 ASSISTANT II-XII intact, nl mental status, nl speech Medications Medication Current Medications IV Flush (NS 3 ml) 3 ml PER PROTOCOL IV ; Start 01/19/19 at 17:00 Ondansetron HCl (Zofran Inj) 4 mg Q6H PRN IV NAUSEA/VOMITING Last administered on 01/21/19 02:54; Admin Dose 4 MG; Start 01/19/19 at 17:00 Enoxaparin Sodium (Lovenox) 40 mg DAILY SC Last administered on 01/22/19 09:43; Admin Dose 40 MG; Start 01/20/19 at 09:00 Azithromycin 250 ml @ 250 mls/hr Q24H IVPB Last administered on 01/21/19 18:14; Admin Dose 250 MLS/HR; Start 01/19/19 at 17:00 Losartan Potassium (Cozaar) 50 mg DAILY PO Last administered on 01/22/19 08:54; Admin Dose 50 MG; Start 01/20/19 at 09:00 Ibuprofen (Motrin) 200 mg Q6H PRN PO MILD PAIN(1-3) OR TEMP>38C Last administered on 01/21/19 16:12; Admin Dose 200 MG; Start 01/19/19 at 18:30 Levalbuterol (Xopenex Neb) 1.25 mg Q4H RESP THERAPY PRN HHN sob; Start 01/20/19 at 16:30 Ipratropium [place] (Atrovent 0.02% (Neb)) 0.5 mg Q4HWA RESP THERAPY HHN Last administered on 01/21/19 20:52; Admin Dose 0.5 MG; Start 01/20/19 at 17:00 Levalbuterol (Xopenex Neb) 1.25 mg Q4HWA RESP THERAPY HHN Last administered on 01/21/19 20:51; Admin Dose 1.25 MG; Start 01/20/19 at 17:00 Clonidine (Catapres) 0.1 mg Q4H PRN PO sbp>160; Start 01/20/19 at 16:30 Cefepime HCl 50 ml @ 100 mls/hr Q12 IVPB Last administered on 01/22/19 08:54; Admin Dose 100 MLS/HR; Start 01/21/19 at 21:00 Methylprednisolone Sodium Succinate (Solu-Medrol) 40 mg Q6 IV Last administered on 01/22/19 06:20; Admin Dose 40 MG; Start 01/21/19 at 15:00 MICHAEL PRADO NP Jan 22, 2019 12:37
--- NOTE | 2019-01-22 14:28 | CONS ---
Assessment/Plan Assessment/Plan Hospital Course (Demo Recall) Patient is alert feels better complaining of constipation no fevers overnight Blood cultures since admission negative urine culture grew E. coli Chest x-ray revealed left upper lobe consolidation Antimicrobials: Cefepime, Zithromax Physical examination: Well-developed obese elderly man who is awake in no distress. Head atraumatic normocephalic neck is supple chest rise symmetrical breath sounds diminished bases. Heart: S1-S2. Abdomen obese soft bowel sounds present. Extremities without cyanosis. Assessment: 1. Sepsis, present on admission 2. UTI 3. Pneumonia ?BOOP 4. Hypertension Plan: Doing better, no fevers, CT of the chest noted, continue antibiotics, steroids, follow pulmonary recommendations Consultation Date/Type/Reason Admit Date/Time Jan 19, 2019 at 15:53 Initial Consult Date Type of Consult id Date/Time of Note DATE: 01/22/19 TIME: 14:27 Exam/Review of Systems Exam Vitals Vital Signs Date Temp Pulse Resp B/P (MAP) Pulse Ox O2 O2 Flow FiO2 Time Delivery Rate 01/22/19 97.7 78 18 132/78 96 11:54 (96) 01/22/19 Room Air 03:39 01/21/19 21 20:52 01/19/19 2 13:40 Intake and Output 01/21/19 01/21/19 01/22/19 1414:59 22:59 06:59 IntakeIntake Total 480 ml 700 ml 240 ml OutputOutput Total 300 ml 200 ml 300 ml BalanceBalance 180 ml 500 ml -60 ml Results Result Diagram: 01/21/19 0507 01/21/19 0507 Medications Medication Current Medications IV Flush (NS 3 ml) 3 ml PER PROTOCOL IV ; Start 01/19/19 at 17:00 Ondansetron HCl (Zofran Inj) 4 mg Q6H PRN IV NAUSEA/VOMITING Last administered on 01/21/19at 02:54; Admin Dose 4 MG; Start 01/19/19 at 17:00 Enoxaparin Sodium (Lovenox) 40 mg DAILY SC Last administered on 01/22/19at 09:43; Admin Dose 40 MG; Start 01/20/19 at 09:00 Azithromycin 250 ml @ 250 mls/hr Q24H IVPB Last administered on 01/21/19at 18:14; Admin Dose 250 MLS/HR; Start 01/19/19 at 17:00 Losartan Potassium (Cozaar) 50 mg DAILY PO Last administered on 01/22/19 08:54; Admin Dose 50 MG; Start 01/20/19 at 09:00 Ibuprofen (Motrin) 200 mg Q6H PRN PO MILD PAIN(1-3) OR TEMP>38C Last administered on 01/21/19 16:12; Admin Dose 200 MG; Start 01/19/19 at 18:30 Levalbuterol (Xopenex Neb) 1.25 mg Q4H RESP THERAPY PRN HHN sob; Start 01/20/19 at 16:30 Ipratropium [place] (Atrovent 0.02% (Neb)) 0.5 mg Q4HWA RESP THERAPY HHN Last administered on 01/22/19 13:28; Admin Dose 0.5 MG; Start 01/20/19 at 17:00 Levalbuterol (Xopenex Neb) 1.25 mg Q4HWA RESP THERAPY HHN Last administered on 01/22/19 13:28; Admin Dose 1.25 MG; Start 01/20/19 at 17:00 Clonidine (Catapres) 0.1 mg Q4H PRN PO sbp>160; Start 01/20/19 at 16:30 Cefepime HCl 50 ml @ 100 mls/hr Q12 IVPB Last administered on 01/22/19 08:54; Admin Dose 100 MLS/HR; Start 01/21/19 at 21:00 Methylprednisolone Sodium Succinate (Solu-Medrol) 40 mg Q6 IV Last administered on 01/22/19 12:34; Admin Dose 40 MG; Start 01/21/19 at 15:00 BARRON GRAHAM NP Jan 22, 2019 14:28
--- NOTE | 2019-01-22 16:27 | CONS ---
Consult Date/Type/Reason Admit Date/Time Jan 19, 2019 at 15:53 Initial Consult Date Type of Consult Pulmonary Date/Time of Note DATE: 01/22/19 TIME: 16:25 Subjective Feels better today. No further fevers less shortness of breath not requiring supplemental O2. Objective Vital Signs Date Temp Pulse Resp B/P (MAP) Pulse Ox O2 O2 Flow FiO2 Time Delivery Rate 01/22/19 97.7 78 18 132/78 96 11:54 (96) 01/22/19 Room Air 03:39 01/21/19 21 20:52 01/19/19 2 13:40 Intake and Output 01/21/19 01/21/19 01/22/19 1515:00 23:00 07:00 IntakeIntake Total 480 ml 700 ml 240 ml OutputOutput Total 300 ml 200 ml 300 ml BalanceBalance 180 ml 500 ml -60 ml Exam GENERAL: VITAL SIGNS: per chart NECK: Supple. No JVD or lymphadenopathy. CARDIAC EXAM: S1, S2. No added sounds or murmurs. CHEST: clear bilaterally, No added sounds, rales or wheezes ABDOMEN: Soft, nontender. No guarding or rebound. EXTREMITIES: No cyanosis, clubbing or edema. NEUROLOGIC: Generalized weakness. No focal deficits. Vent Setting Fraction of Inspired Oxygen pe: 21 Results/Medications Result Diagram: 01/21/19 0507 01/21/19 0507 Medications Current Medications IV Flush (NS 3 ml) 3 ml PER PROTOCOL IV ; Start 01/19/19 at 17:00 Ondansetron HCl (Zofran Inj) 4 mg Q6H PRN IV NAUSEA/VOMITING Last administered on 01/21/19at 02:54; Admin Dose 4 MG; Start 01/19/19 at 17:00 Enoxaparin Sodium (Lovenox) 40 mg DAILY SC Last administered on 01/22/19at 09:43; Admin Dose 40 MG; Start 01/20/19 at 09:00 Azithromycin 250 ml @ 250 mls/hr Q24H IVPB Last administered on 01/21/19at 18:14; Admin Dose 250 MLS/HR; Start 01/19/19 at 17:00 Losartan Potassium (Cozaar) 50 mg DAILY PO Last administered on 01/22/19at 08:54; Admin Dose 50 MG; Start 01/20/19 at 09:00 Ibuprofen (Motrin) 200 mg Q6H PRN PO MILD PAIN(1-3) OR TEMP>38C Last administered on 01/21/19 16:12; Admin Dose 200 MG; Start 01/19/19 at 18:30 Levalbuterol (Xopenex Neb) 1.25 mg Q4H RESP THERAPY PRN HHN sob; Start 01/20/19 at 16:30 Ipratropium [place] (Atrovent 0.02% (Neb)) 0.5 mg Q4HWA RESP THERAPY HHN Last administered on 01/22/19 13:28; Admin Dose 0.5 MG; Start 01/20/19 at 17:00 Levalbuterol (Xopenex Neb) 1.25 mg Q4HWA RESP THERAPY HHN Last administered on 01/22/19 13:28; Admin Dose 1.25 MG; Start 01/20/19 at 17:00 Clonidine (Catapres) 0.1 mg Q4H PRN PO sbp>160; Start 01/20/19 at 16:30 Cefepime HCl 50 ml @ 100 mls/hr Q12 IVPB Last administered on 01/22/19 08:54; Admin Dose 100 MLS/HR; Start 01/21/19 at 21:00 Methylprednisolone Sodium Succinate (Solu-Medrol) 40 mg Q6 IV Last administered on 01/22/19 12:34; Admin Dose 40 MG; Start 01/21/19 at 15:00 Assessment/Plan Hospital Course (Demo Recall) Assessment 1. 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 Plan 1. Continue antibiotics and steroids. Differential does include adenocarcinoma and/or cryptogenic organizing pneumonia. Will repeat chest x-ray in CHLOE Enriquez MD, [facility] Jan 22, 2019 16:27
[2019-01-22 16:31] VITALS: BP 128/75; PULSE 78; RESP 18
[2019-01-22] MEDS: AZITHROMYCIN 500MG/NS (PMX) 250 ML IVPB SCH (17:18)
[2019-01-22 20:00] VITALS: PULSE 98
[2019-01-22 20:24] VITALS: BP 119/69; PULSE 92; RESP 18
[2019-01-23] VITALS: BP 121/71; PULSE 88; RESP 18
[2019-01-23] MEDS: METHYLPREDNISOLONE 40 MG INJ IV SCH ×4 (00:53→17:22)
[2019-01-23 04:21] VITALS: BP 120/66; PULSE 88; RESP 18
[2019-01-23 07:57] VITALS: BP 122/72; PULSE 87; RESP 18
[2019-01-23] MEDS: LOSARTAN 50 MG TAB PO SCH (08:54)
[2019-01-23] MEDS: CEFEPIME 1GM/50 ML (PMX) 50 ML IVPB SCH ×2 (08:54→20:43)
[2019-01-23] MEDS: LEVALBUTEROL (NEB) 1.25 MG/0.5 ML AMP HHN SCH ×4 (09:01→20:47)
[2019-01-23] MEDS: IPRATROPIUM (NEB) 0.5 MG/2.5 ML AMP HHN SCH ×4 (09:01→20:47)
[2019-01-23] MEDS: ENOXAPARIN 40 MG/0.4 ML SYG SC SCH (09:08)
[2019-01-23 11:05] VITALS: BP 136/84; PULSE 93; RESP 18
--- NOTE | 2019-01-23 12:04 | CONS ---
Assessment/Plan Assessment/Plan Hospital Course (Demo Recall) ID PROGRESS NOTE CURRENT ABX: DAY # =>Cefepime + Azith 01/23/19 0507 01/23/19 0507 24H INTERVAL SUMMARY * Feeling better with decreased oxygen needs - Afebrile * Without dyspnea on speaking and ambulating off supplemental O2 * Blood cultures since admission negative urine culture grew E. coli * 01/22/19 Sputum: RESPIRATORY CULTURE Preliminary Organism 1 NORMAL RESPIRATORY LEANA QUANTITY 1+ DIAGNOSTIC IMAGING * 01/23/19 CXR:1. Cardiomegaly. 2. Left upper lobe infiltrates, with areas of consolidation, highly concerning for pneumonia in the appropriate clinical setting. Findings appear to be improved since prior study. * 01/2019 CT: PHYSICAL EXAMINATION: GENERAL: VSS, NAD HEENT: AT, NC, NECK: Supple, CHEST: Rise symmetrical without dyspnea on speaking and ambulating off supplemental O2 HEART: Pulse RRR ABDOMEN: Benign EXTREMITIES: Warm, dry SKIN: No rash, no diaphoresis ID ASSESSMENT 68 yo M admit with: 1. Sepsis, present on admission 2. UTI * 01/19/19 CX: (+) URINE CULTURE Final Organism 1 ESCHERICHIA COLI COLONY COUNT 30,000 - 40,000 CFU/ml 3. Left Upper Lobe PNA -- CXR improved today 4. COPD: centrilobular emphysema. 5. Hypertension ABX ALLERGIES: KNDA INVASIVES: PIV CURRENT ABX: DAY # =>Cefepime + Azith ID RECOMMENDATIONS/PLAN: 1. Continue current ABX -- steroids, follow pulmonary recommendations 2. Patient and CXR improving -- When cleared by pulmonary for DC home, may DC on PO Levaquin and Doxycycline if pulmonary concurs. . Consultation Date/Type/Reason Admit Date/Time Jan 19, 2019 at 15:53 Initial Consult Date Date/Time of Note DATE: 01/23/19 TIME: 12:04 Exam/Review of Systems Exam Vitals Vital Signs Date Temp Pulse Resp B/P (MAP) Pulse Ox O2 O2 Flow FiO2 Time Delivery Rate 01/23/19 97.8 93 18 136/84 94 11:05 (101) 01/23/19 21 09:05 01/22/19 Room Air 03:39 01/19/19 2 13:40 Intake and Output 01/22/19 01/22/19 01/23/19 1515:00 23:00 07:00 IntakeIntake Total 500 ml 650 ml 500 ml OutputOutput Total 350 ml 420 ml 500 ml BalanceBalance 150 ml 230 ml 0 ml Results Result Diagram: 01/23/19 0507 01/23/19 0507 Results 24hrs Laboratory Tests Test 01/23/19 05:07 White Blood Count 7.8 Red Blood Count 3.79 L Hemoglobin 11.8 L Hematocrit 34.8 L Mean Corpuscular Volume 91.8 Mean Corpuscular Hemoglobin 31.1 Mean Corpuscular Hemoglobin Concent 33.9 Red Cell Distribution Width 13.0 Platelet Count 212 # Mean Platelet Volume 10.7 H Immature Granulocytes % 0.600 H Neutrophils % 89.9 H Lymphocytes % 5.4 L Monocytes % 4.0 Eosinophils % 0.0 Basophils % 0.1 Nucleated Red Blood Cells % 0.0 Immature Granulocytes # 0.050 H Neutrophils # 7.0 Lymphocytes # 0.4 L Monocytes # 0.3 Eosinophils # 0.0 Basophils # 0.0 Nucleated Red Blood Cells # 0.0 Sodium Level 138 Potassium Level 4.2 Chloride Level 105 Carbon Dioxide Level 24 Anion Gap 9 Blood Urea Nitrogen 21 H Creatinine 0.81 Est Glomerular Filtrat Rate mL/min > 60 Glucose Level 190 Calcium Level 8.5 Medications Medication Current Medications IV Flush (NS 3 ml) 3 ml PER PROTOCOL IV ; Start 01/19/19 at 17:00 Ondansetron HCl (Zofran Inj) 4 mg Q6H PRN IV NAUSEA/VOMITING Last administered on 01/21/19at 02:54; Admin Dose 4 MG; Start 01/19/19 at 17:00 Enoxaparin Sodium (Lovenox) 40 mg DAILY SC Last administered on 01/23/19at 09:08; Admin Dose 40 MG; Start 01/20/19 at 09:00 Azithromycin 250 ml @ 250 mls/hr Q24H IVPB Last administered on 01/22/19 17:18; Admin Dose 250 MLS/HR; Start 01/19/19 at 17:00 Losartan Potassium (Cozaar) 50 mg DAILY PO Last administered on 01/23/19 08:54; Admin Dose 50 MG; Start 01/20/19 at 09:00 Ibuprofen (Motrin) 200 mg Q6H PRN PO MILD PAIN(1-3) OR TEMP>38C Last administered on 01/21/19at 16:12; Admin Dose 200 MG; Start 01/19/19 at 18:30 Levalbuterol (Xopenex Neb) 1.25 mg Q4H RESP THERAPY PRN HHN sob; Start 01/20/19 at 16:30 Ipratropium [place] (Atrovent 0.02% (Neb)) 0.5 mg Q4HWA RESP THERAPY HHN Last administered on 01/23/19at 09:01; Admin Dose 0.5 MG; Start 01/20/19 at 17:00 Levalbuterol (Xopenex Neb) 1.25 mg Q4HWA RESP THERAPY HHN Last administered on 01/23/19at 09:01; Admin Dose 1.25 MG; Start 01/20/19 at 17:00 Clonidine (Catapres) 0.1 mg Q4H PRN PO sbp>160; Start 01/20/19 at 16:30 Cefepime HCl 50 ml @ 100 mls/hr Q12 IVPB Last administered on 01/23/19at 08:54; Admin Dose 100 MLS/HR; Start 01/21/19 at 21:00 Methylprednisolone Sodium Succinate (Solu-Medrol) 40 mg Q6 IV Last administered on 01/23/19at 05:49; Admin Dose 40 MG; Start 01/21/19 at 15:00 JULIO LEIVA NP Jan 23, 2019 12:04
--- NOTE | 2019-01-23 13:28 | PN ---
Date/Time of Note Date/Time of Note DATE: 01/23/19 TIME: 13:07 Assessment/Plan VTE Prophylaxis Risk score (from Ns)>0 risk: 5 SCD applied (from Ns): Yes Pharmacological prophylaxis: LMWH Lines/Catheters IV [facility]from [facility] [place] Urinary Cath still in place: No Assessment/Plan Hospital Course Assessment and plan 1. Sepsis. - Likely secondary to community-acquired pneumonia. - Continue antibiotic. -- Antipyretics as needed. - Follow-up on cultures. - ID consult following 2. Community-acquired pneumonia. - continue abx - organ recovery coordinator following 3. respiratory failure secondary to #2 - continue with breathing tx - IS/CPT - CT scan of chest: There is left upper lobe patchy consolidation with associated air bronchograms. This is concerning for infectious process - f/u organ recovery coordinator recommendations 3. Hypertension. - Continue antihypertensives. 4. Obesity. - Weight reduction was advised Disposition plan. Continue antibiotics. titrate down o2.appears to be improving. continue current tx. f/u consult recommendations. d/c planning Discussed POC with Dr. Prajapati Result Diagram: 01/23/19 0507 01/23/19 0507 Results 24hrs Laboratory Tests Test 01/23/19 05:07 White Blood Count 7.8 Red Blood Count 3.79 L Hemoglobin 11.8 L Hematocrit 34.8 L Mean Corpuscular Volume 91.8 Mean Corpuscular Hemoglobin 31.1 Mean Corpuscular Hemoglobin Concent 33.9 Red Cell Distribution Width 13.0 Platelet Count 212 # Mean Platelet Volume 10.7 H Immature Granulocytes % 0.600 H Neutrophils % 89.9 H Lymphocytes % 5.4 L Monocytes % 4.0 Eosinophils % 0.0 Basophils % 0.1 Nucleated Red Blood Cells % 0.0 Immature Granulocytes # 0.050 H Neutrophils # 7.0 Lymphocytes # 0.4 L Monocytes # 0.3 Eosinophils # 0.0 Basophils # 0.0 Nucleated Red Blood Cells # 0.0 Sodium Level 138 Potassium Level 4.2 Chloride Level 105 Carbon Dioxide Level 24 Anion Gap 9 Blood Urea Nitrogen 21 H Creatinine 0.81 Est Glomerular Filtrat Rate mL/min > 60 Glucose Level 190 Calcium Level 8.5 Subjective 24 Hr Interval Summary Free Text/Dictation seen sitting in bed on room air. still reports some dyspnea on exertion Exam/Review of Systems Exam Vitals Vital Signs Date Temp Pulse Resp B/P (MAP) Pulse Ox O2 O2 Flow FiO2 Time Delivery Rate 01/23/19 97.8 93 18 136/84 94 11:05 (101) 01/23/19 21 09:05 01/22/19 Room Air 03:39 01/19/19 2 13:40 Intake and Output 01/22/19 01/22/19 01/23/19 1515:00 23:00 07:00 IntakeIntake Total 500 ml 650 ml 500 ml OutputOutput Total 350 ml 420 ml 500 ml BalanceBalance 150 ml 230 ml 0 ml Exam Constitutional: alert, oriented Psych: nl mood/affect Head: normocephalic Neck: supple, non-tender Respiratory: no obvious wheezing/rhonchi, slightly diminished on right lung field Cardiovascular: regular rate and rhythm Gastrointestinal: soft, non-tender 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: COIN PURSE FRAMER II-XII intact, nl mental status, nl speech Results Results 24hrs Laboratory Tests Test 01/23/19 05:07 White Blood Count 7.8 Red Blood Count 3.79 L Hemoglobin 11.8 L Hematocrit 34.8 L Mean Corpuscular Volume 91.8 Mean Corpuscular Hemoglobin 31.1 Mean Corpuscular Hemoglobin Concent 33.9 Red Cell Distribution Width 13.0 Platelet Count 212 # Mean Platelet Volume 10.7 H Immature Granulocytes % 0.600 H Neutrophils % 89.9 H Lymphocytes % 5.4 L Monocytes % 4.0 Eosinophils % 0.0 Basophils % 0.1 Nucleated Red Blood Cells % 0.0 Immature Granulocytes # 0.050 H Neutrophils # 7.0 Lymphocytes # 0.4 L Monocytes # 0.3 Eosinophils # 0.0 Basophils # 0.0 Nucleated Red Blood Cells # 0.0 Sodium Level 138 Potassium Level 4.2 Chloride Level 105 Carbon Dioxide Level 24 Anion Gap 9 Blood Urea Nitrogen 21 H Creatinine 0.81 Est Glomerular Filtrat Rate mL/min > 60 Glucose Level 190 Calcium Level 8.5 Medications Medication Current Medications IV Flush (NS 3 ml) 3 ml PER PROTOCOL IV ; Start 01/19/19 at 17:00 Ondansetron HCl (Zofran Inj) 4 mg Q6H PRN IV NAUSEA/VOMITING Last administered on 01/21/19at 02:54; Admin Dose 4 MG; Start 01/19/19 at 17:00 Enoxaparin Sodium (Lovenox) 40 mg DAILY SC Last administered on 01/23/19 09:08; Admin Dose 40 MG; Start 01/20/19 at 09:00 Azithromycin 250 ml @ 250 mls/hr Q24H IVPB Last administered on 01/22/19 17:18; Admin Dose 250 MLS/HR; Start 01/19/19 at 17:00 Losartan Potassium (Cozaar) 50 mg DAILY PO Last administered on 01/23/19 08:54; Admin Dose 50 MG; Start 01/20/19 at 09:00 Ibuprofen (Motrin) 200 mg Q6H PRN PO MILD PAIN(1-3) OR TEMP>38C Last administered on 01/21/19 16:12; Admin Dose 200 MG; Start 01/19/19 at 18:30 Levalbuterol (Xopenex Neb) 1.25 mg Q4H RESP THERAPY PRN HHN sob; Start 01/20/19 at 16:30 Ipratropium [place] (Atrovent 0.02% (Neb)) 0.5 mg Q4HWA RESP THERAPY HHN Last administered on 01/23/19 09:01; Admin Dose 0.5 MG; Start 01/20/19 at 17:00 Levalbuterol (Xopenex Neb) 1.25 mg Q4HWA RESP THERAPY HHN Last administered on 01/23/19 09:01; Admin Dose 1.25 MG; Start 01/20/19 at 17:00 Clonidine (Catapres) 0.1 mg Q4H PRN PO sbp>160; Start 01/20/19 at 16:30 Cefepime HCl 50 ml @ 100 mls/hr Q12 IVPB Last administered on 01/23/19 08:54; Admin Dose 100 MLS/HR; Start 01/21/19 at 21:00 Methylprednisolone Sodium Succinate (Solu-Medrol) 40 mg Q6 IV Last administered on 01/23/19 05:49; Admin Dose 40 MG; Start 01/21/19 at 15:00 MICHAEL PRADO NP Jan 23, 2019 13:17
--- NOTE | 2019-01-23 14:17 | CONS ---
Consult Date/Type/Reason Admit Date/Time Jan 19, 2019 at 15:53 Initial Consult Date Type of Consultation: Pulm Date/Time of Note DATE: 01/23/19 TIME: 14:06 Subjective Patient feels better. Afebrile x 24 hours. Wants to fly to [place] soon. Objective Vitals Vital Signs Date Temp Pulse Resp B/P (MAP) Pulse Ox O2 O2 Flow FiO2 Time Delivery Rate 01/23/19 97.8 93 18 136/84 94 11:05 (101) 01/23/19 21 09:05 01/22/19 Room Air 03:39 01/19/19 2 13:40 Intake and Output 01/22/19 01/22/19 01/23/19 1515:00 23:00 07:00 IntakeIntake Total 500 ml 650 ml 500 ml OutputOutput Total 350 ml 420 ml 500 ml BalanceBalance 150 ml 230 ml 0 ml Exam HEENT: Neck supple; no JVD; no LAD CVS: RRR, S1 and S2 CHEST: Left upper lung zone egophony ABD: Soft, NT, + BS EXT: No c/c/e Results/Medications Result Diagram: 01/23/19 0507 01/23/19 0507 Results 24 hrs Laboratory Tests Test 01/23/19 05:07 White Blood Count 7.8 Red Blood Count 3.79 L Hemoglobin 11.8 L Hematocrit 34.8 L Mean Corpuscular Volume 91.8 Mean Corpuscular Hemoglobin 31.1 Mean Corpuscular Hemoglobin Concent 33.9 Red Cell Distribution Width 13.0 Platelet Count 212 # Mean Platelet Volume 10.7 H Immature Granulocytes % 0.600 H Neutrophils % 89.9 H Lymphocytes % 5.4 L Monocytes % 4.0 Eosinophils % 0.0 Basophils % 0.1 Nucleated Red Blood Cells % 0.0 Immature Granulocytes # 0.050 H Neutrophils # 7.0 Lymphocytes # 0.4 L Monocytes # 0.3 Eosinophils # 0.0 Basophils # 0.0 Nucleated Red Blood Cells # 0.0 Sodium Level 138 Potassium Level 4.2 Chloride Level 105 Carbon Dioxide Level 24 Anion Gap 9 Blood Urea Nitrogen 21 H Creatinine 0.81 Est Glomerular Filtrat Rate mL/min > 60 Glucose Level 190 Calcium Level 8.5 Home Meds Reported Medications Losartan Potassium* (Losartan Potassium*) 50 Mg Tablet, 50 MG PO DAILY, TAB 01/19/19 Medications Current Medications IV Flush (NS 3 ml) 3 ml PER PROTOCOL IV ; Start 01/19/19 at 17:00 Ondansetron HCl (Zofran Inj) 4 mg Q6H PRN IV NAUSEA/VOMITING Last administered on 01/21/19 02:54; Admin Dose 4 MG; Start 01/19/19 at 17:00 Enoxaparin Sodium (Lovenox) 40 mg DAILY SC Last administered on 01/23/19 09:08; Admin Dose 40 MG; Start 01/20/19 at 09:00 Azithromycin 250 ml @ 250 mls/hr Q24H IVPB Last administered on 01/22/19 17: 18; Admin Dose 250 MLS/HR; Start 01/19/19 at 17:00 Losartan Potassium (Cozaar) 50 mg DAILY PO Last administered on 01/23/19 08:54; Admin Dose 50 MG; Start 01/20/19 at 09:00 Ibuprofen (Motrin) 200 mg Q6H PRN PO MILD PAIN(1-3) OR TEMP>38C Last administered on 01/21/19 16:12; Admin Dose 200 MG; Start 01/19/19 at 18:30 Levalbuterol (Xopenex Neb) 1.25 mg Q4H RESP THERAPY PRN HHN sob; Start 01/20/19 at 16:30 Ipratropium [place] (Atrovent 0.02% (Neb)) 0.5 mg Q4HWA RESP THERAPY HHN Last administered on 01/23/19 09:01; Admin Dose 0.5 MG; Start 01/20/19 at 17:00 Levalbuterol (Xopenex Neb) 1.25 mg Q4HWA RESP THERAPY HHN Last administered on 01/23/19 09:01; Admin Dose 1.25 MG; Start 01/20/19 at 17:00 Clonidine (Catapres) 0.1 mg Q4H PRN PO sbp>160; Start 01/20/19 at 16:30 Cefepime HCl 50 ml @ 100 mls/hr Q12 IVPB Last administered on 01/23/19 08:54; Admin Dose 100 MLS/HR; Start 01/21/19 at 21:00 Methylprednisolone Sodium Succinate (Solu-Medrol) 40 mg Q6 IV Last administered on 7/4/19at 13:43; Admin Dose 40 MG; Start 01/21/19 at 15:00 Assessment/Plan Assessment/Plan (Daily) IMP: 1.NADYA pneumonia--superimposed on background of centrilobular emphysema. Lack of leukocytosis unusual though fever curve encouraging. RECS: 1. Abx as per ID 2. Advised against travel any time soon 3. Needs repeat chest imaging in 4-6 weeks. REBA ENGLISH MD Jan 23, 2019 14:17
[2019-01-23 14:55] VITALS: BP 130/81; PULSE 83; RESP 20
[2019-01-23] MEDS: AZITHROMYCIN 500MG/NS (PMX) 250 ML IVPB SCH (17:22)
[2019-01-23 19:12] VITALS: BP 138/62; PULSE 94; RESP 18
[2019-01-23] MEDS: MAGNESIUM HYDROXIDE 30ML CUP PO PRN (21:26)
[2019-01-24 00:24] VITALS: BP 144/69; PULSE 79; RESP 79
[2019-01-24] MEDS: METHYLPREDNISOLONE 40 MG INJ IV SCH ×3 (00:37→11:11)
[2019-01-24] MEDS: MAGNESIUM HYDROXIDE 30ML CUP PO PRN (01:34)
[2019-01-24 04:23] VITALS: BP 138/70; PULSE 60; RESP 18
[2019-01-24 07:14] VITALS: BP 143/73; PULSE 79; RESP 20
[2019-01-24] MEDS: CEFEPIME 1GM/50 ML (PMX) 50 ML IVPB SCH (08:23)
[2019-01-24] MEDS: LOSARTAN 50 MG TAB PO SCH (08:23)
[2019-01-24] MEDS: ENOXAPARIN 40 MG/0.4 ML SYG SC SCH (08:29)
[2019-01-24] MEDS: LEVALBUTEROL (NEB) 1.25 MG/0.5 ML AMP HHN SCH ×2 (08:59→12:53)
[2019-01-24] MEDS: IPRATROPIUM (NEB) 0.5 MG/2.5 ML AMP HHN SCH ×2 (08:59→12:53)
--- NOTE | 2019-01-24 10:39 | PDOCDIS ---
Discharge Instructions DIAGNOSIS Discharge Diagnosis 1. Sepsis. - Likely secondary to community-acquired pneumonia. 2. Community-acquired pneumonia. 3. respiratory failure 3. Hypertension. 4. Obesity. CONDITION [id number] Patient Condition: [id number] Stable HOME CARE INSTRUCTIONS: [id number] Diet Instructions: [id number] Low Fat /Cholesterol FOLLOW UP/APPOINTMENTS Follow-up Plan 1. Follow up with your primary care provider in one week MICHAEL PRADO NP Jan 24, 2019 10:39
[2019-01-24] MEDS ORDERED: ALBU18HF INHALATION (10:49)
[2019-01-24] MEDS ORDERED: LEVO750T8 PO (10:49)
[2019-01-24] MEDS ORDERED: SACC250C PO (10:49)
[2019-01-24] MEDS ORDERED: MED4DP PO (10:49)
[2019-01-24] MEDS ORDERED: LOSA50TA14 PO (10:49)
[2019-01-24] MEDS ORDERED: DOXY100T21 PO (10:49)
--- NOTE | 2019-01-24 10:50 | CONS ---
Assessment/Plan Assessment/Plan Hospital Course (Demo Recall) ID PROGRESS NOTE CURRENT ABX: DAY # =>Cefepime + Azith 24H INTERVAL SUMMARY * Feeling better with decreased oxygen needs - Afebrile * Without dyspnea on speaking and ambulating off supplemental O2 * Blood cultures since admission negative urine culture grew E. coli * 01/22/19 Sputum: RESPIRATORY CULTURE Preliminary Organism 1 NORMAL RESPIRATORY LEANA QUANTITY 1+ DIAGNOSTIC IMAGING * 01/23/19 CXR:1. Cardiomegaly. 2. Left upper lobe infiltrates, with areas of consolidation, highly concerning for pneumonia in the appropriate clinical setting. Findings appear to be improved since prior study. * 01/2019 CT: PHYSICAL EXAMINATION: GENERAL: VSS, NAD HEENT: AT, NC, NECK: Supple, CHEST: Rise symmetrical without dyspnea on speaking and ambulating off supplemental O2 HEART: Pulse RRR ABDOMEN: Benign EXTREMITIES: Warm, dry SKIN: No rash, no diaphoresis ID ASSESSMENT 68 yo M admit with: 1. Sepsis, present on admission 2. UTI * 01/19/19 CX: (+) URINE CULTURE Final Organism 1 ESCHERICHIA COLI COLONY COUNT 30,000 - 40,000 CFU/ml 3. Left Upper Lobe PNA -- CXR improved today 4. COPD: centrilobular emphysema. 5. Hypertension ABX ALLERGIES: KNDA INVASIVES: PIV CURRENT ABX: DAY # 5 =>Cefepime + Azith ID RECOMMENDATIONS/PLAN: 1. Continue current ABX -- steroids taper 2. Patient and CXR improving 3. When cleared by pulmonary for DC home, may DC on PO Levaquin and Doxycycline if pulmonary concurs x 5 days to complete 10 days . Consultation Date/Type/Reason Admit Date/Time Jan 19, 2019 at 15:53 Initial Consult Date Date/Time of Note DATE: 01/24/19 TIME: 10:45 Exam/Review of Systems Exam Vitals Vital Signs Date Temp Pulse Resp B/P (MAP) Pulse Ox O2 O2 Flow FiO2 Time Delivery Rate 01/24/19 92 20 94 21 09:00 01/24/19 97.9 143/73 Room Air 07:14 (96) Intake and Output 01/23/19 01/23/19 01/24/19 1515:00 23:00 07:00 IntakeIntake Total 50 ml 600 ml 300 ml BalanceBalance 50 ml 600 ml 300 ml Results Result Diagram: 01/24/19 0542 01/24/19 0542 Results 24hrs Laboratory Tests Test 01/24/19 05:42 White Blood Count 7.7 Red Blood Count 3.73 L Hemoglobin 11.7 L Hematocrit 33.9 L Mean Corpuscular Volume 90.9 Mean Corpuscular Hemoglobin 31.4 Mean Corpuscular Hemoglobin Concent 34.5 Red Cell Distribution Width 13.2 Platelet Count 238 Mean Platelet Volume 10.4 Immature Granulocytes % 1.600 H Neutrophils % 83.0 H Lymphocytes % 8.0 L Monocytes % 7.1 Eosinophils % 0.0 Basophils % 0.3 Nucleated Red Blood Cells % 0.0 Immature Granulocytes # 0.120 H Neutrophils # 6.4 Lymphocytes # 0.6 L Monocytes # 0.6 Eosinophils # 0.0 Basophils # 0.0 Nucleated Red Blood Cells # 0.0 Sodium Level 139 Potassium Level 4.5 Chloride Level 103 Carbon Dioxide Level 27 Anion Gap 9 Blood Urea Nitrogen 22 H Creatinine 0.79 Est Glomerular Filtrat Rate mL/min > 60 Glucose Level 164 Calcium Level 8.6 Medications Medication Current Medications IV Flush (NS 3 ml) 3 ml PER PROTOCOL IV ; Start 01/19/19 at 17:00 Ondansetron HCl (Zofran Inj) 4 mg Q6H PRN IV NAUSEA/VOMITING Last administered on 01/21/19at 02:54; Admin Dose 4 MG; Start 01/19/19 at 17:00 Enoxaparin Sodium (Lovenox) 40 mg DAILY SC Last administered on 01/24/19 08:29; Admin Dose 40 MG; Start 01/20/19 at 09:00 Azithromycin 250 ml @ 250 mls/hr Q24H IVPB Last administered on 01/23/19at 17:22; Admin Dose 250 MLS/HR; Start 01/19/19 at 17:00 Losartan Potassium (Cozaar) 50 mg DAILY PO Last administered on 01/24/19 08:23; Admin Dose 50 MG; Start 01/20/19 at 09:00 Ibuprofen (Motrin) 200 mg Q6H PRN PO MILD PAIN(1-3) OR TEMP>38C Last administered on 01/21/19at 16:12; Admin Dose 200 MG; Start 01/19/19 at 18:30 Levalbuterol (Xopenex Neb) 1.25 mg Q4H RESP THERAPY PRN HHN sob; Start 01/20/19 at 16:30 Ipratropium [place] (Atrovent 0.02% (Neb)) 0.5 mg Q4HWA RESP THERAPY HHN Last administered on 01/24/19 08:59; Admin Dose 0.5 MG; Start 01/20/19 at 17:00 Levalbuterol (Xopenex Neb) 1.25 mg Q4HWA RESP THERAPY HHN Last administered on 01/24/19 08:59; Admin Dose 1.25 MG; Start 01/20/19 at 17:00 Clonidine (Catapres) 0.1 mg Q4H PRN PO sbp>160; Start 01/20/19 at 16:30 Cefepime HCl 50 ml @ 100 mls/hr Q12 IVPB Last administered on 01/24/19 08:23; Admin Dose 100 MLS/HR; Start 01/21/19 at 21:00 Methylprednisolone Sodium Succinate (Solu-Medrol) 40 mg Q6 IV Last administered on 01/24/19 06:26; Admin Dose 40 MG; Start 01/21/19 at 15:00 Magnesium Hydroxide (Milk Of Mag) 30 ml Q4H PRN PO CONSTIPATION Last administered on 01/24/19 01:34; Admin Dose 30 ML; Start 01/23/19 at 21:30 JULIO LEIVA NP Jan 24, 2019 10:50
[2019-01-24] MEDS ORDERED: DOXYCYCLINE 100 MG TAB PO SCH (11:00)
[2019-01-24] MEDS ORDERED: LEVOFLOXACIN 750 MG TABLET NGT SCH (11:00)
[2019-01-24 11:13] VITALS: BP 134/76; PULSE 86; RESP 20
--- NOTE | 2019-01-24 13:19 | DS ---
Date/Time of Note Date/Time of Note DATE: 01/24/19 TIME: 13:18 Discharge Summary Admission/Discharge Info Admit Date/Time Jan 19, 2019 at 15:53 Discharge Date/Time Discharge Diagnosis 1. Sepsis. - Likely secondary to community-acquired pneumonia. 2. Community-acquired pneumonia. 3. respiratory failure 3. Hypertension. 4. Obesity. Patient Condition: Stable Hospital Course This is a 68-year-old male with history of hypertension, who was visiting the [facility] for 1 month and was scheduled to go back to [place] on January 20, 2019 however he started to have back pain as well as some urinary frequency and urgency. He also reported subjective fevers. He also reported increased weakness. He tried acupuncture without significant relief. As such she went to the hospital. He was found to have a temperature of 103.2. He was also tachycardic he also had x-ray with findings consistent with pneumonia. CT scan of the abdomen and pelvis was negative for any urolithiasis or obstructive uropathy or diverticulitis or appendicitis. Patient was septic likely from community acquired pneumonia. We did place him on antibiotic as well as antipyretics. Was on oxygen initially which we did titrate down. He was also provided with breathing treatments as needed for shortness of breath. He was seen by award clerk and optimized medically. We did provide him with incentive spirometry as well as CPT. We did get respiratory culture which was negative. He was also found to have UTI with E. coli. For this he was continued on antibiotic and he did have good response. His fevers did resolve. He is otherwise otherwise medically with weight reduction advised for his obesity and antihypertensives for high blood pressure. During his course of stay he did improve. The plan of care was discussed with the patient and patient verbalizes understanding. On the day of discharge patient was in stable condition Discussed POC with Dr. Prajapati [place] Meds Active Scripts Albuterol Sulfate* (Ventolin HFA*) 18 Gm Hfa.aer.ad, 2 PUFF INHALATION Q4H, #1 INHALER Prov:MICHAEL PRADO WAGON DRILLER 01/24/19 Saccharomyces Boulardii* (Florastor*) 250 Mg Cap, 500 MG PO BID, #40 CAP Prov:MICHAEL PRADO WAGON DRILLER 01/24/19 Levofloxacin* (Levofloxacin*) 750 Mg Tablet, 750 MG PO DAILY, #5 TAB Prov:REGIDOR,MICHAEL WAGON DRILLER 01/24/19 Doxycycline Monohydrate* (Doxycycline Monohydrate*) 100 Mg Tablet, 100 MG PO BID, #10 TAB Prov:MICHAEL PRADO WAGON DRILLER 01/24/19 Methylprednisolone* (Medrol* DOSE PACK) 4 Mg/Dose-Pack Tab.ds.pk, 4 MG PO . DIRECTED, #1 PACKET Prov:MICHAEL PRADO WAGON DRILLER 01/24/19 Losartan Potassium* (Losartan Potassium*) 50 Mg Tablet, 50 MG PO DAILY, #30 TAB Prov:MICHAEL PRADO WAGON DRILLER 01/24/19 Follow-up Plan 1. Follow up with your primary care provider in one week Primary Care Provider Care Physician No Primary Time spent on discharge: > 30 minutes Pending Labs Laboratory Tests Test 01/24/19 05:42 White Blood Count 7.7 10^3/ul (4.8-10.8) Red Blood Count 3.73 10^6/ul (4.70-6.10) Hemoglobin 11.7 g/dl (14.0-18.0) Hematocrit 33.9 % (42.0-52.0) Mean Corpuscular Volume 90.9 fl (82.0-101.0) Mean Corpuscular Hemoglobin 31.4 pg (29.0-33.0) Mean Corpuscular Hemoglobin Concent 34.5 g/dl (32.0-37.0) Red Cell Distribution Width 13.2 % (11.5-14.5) Platelet Count 238 10^3/UL (140-415) Mean Platelet Volume 10.4 fl (7.4-10.4) Immature Granulocytes % 1.600 % (0.001-0.429) Neutrophils % 83.0 % (39.0-77.0) Lymphocytes % 8.0 % (15.0-51.0) Monocytes % 7.1 % (0.0-11.0) Eosinophils % 0.0 % (0.0-7.0) Basophils % 0.3 % (0.0-2.0) Nucleated Red Blood Cells % 0.0 /100WBC (0.0-0.0) Immature Granulocytes # 0.120 10^3/ul (0.0-0.031) Neutrophils # 6.4 10^3/ul (1.6-7.5) Lymphocytes # 0.6 10^3/ul (0.8-2.9) Monocytes # 0.6 10^3/ul (0.3-0.9) Eosinophils # 0.0 10^3/ul (0.0-0.5) Basophils # 0.0 10^3/ul (0.0-0.1) Nucleated Red Blood Cells # 0.0 10^3/ul (0.0-0.0) Sodium Level 139 mmol/L (135-144) Potassium Level 4.5 mmol/L (3.5-5.1) Chloride Level 103 mmol/L (97-110) Carbon Dioxide Level 27 mmol/L (21-31) Anion Gap 9 (5-13) Blood Urea Nitrogen 22 mg/dl (7-20) Creatinine 0.79 mg/dl (0.61-1.24) Est Glomerular Filtrat Rate mL/min > 60 mL/min (>60) Glucose Level 164 mg/dl (70-220) Calcium Level 8.6 mg/dl (8.4-10.2) MICHAEL PRADO NP Jan 24, 2019 13:19
--- NOTE | 2019-01-24 13:26 | CONS ---
Consult Date/Type/Reason Admit Date/Time Jan 19, 2019 at 15:53 Initial Consult Date Type of Consult Pulmonary Date/Time of Note DATE: 01/24/19 TIME: 13:26 Subjective Continues to improve less shortness of breath no hypoxia. Objective Vital Signs Date Temp Pulse Resp B/P (MAP) Pulse Ox O2 O2 Flow FiO2 Time Delivery Rate 01/24/19 85 18 94 21 12:53 01/24/19 97.0 134/76 Room Air 11:13 (95) Intake and Output 01/23/19 01/23/19 01/24/19 1515:00 23:00 07:00 IntakeIntake Total 50 ml 600 ml 300 ml BalanceBalance 50 ml 600 ml 300 ml Exam GENERAL: Well-nourished well-developed gentleman comfortable at rest VITAL SIGNS: per chart NECK: Supple. No JVD or lymphadenopathy. CARDIAC EXAM: S1, S2. No added sounds or murmurs. CHEST: clear bilaterally, No added sounds, rales or wheezes ABDOMEN: Soft, nontender. No guarding or rebound. EXTREMITIES: No cyanosis, clubbing or edema. NEUROLOGIC: Generalized weakness. No focal deficits. Vent Setting Fraction of Inspired Oxygen pe: 21 Results/Medications Result Diagram: 01/24/19 0542 01/24/19 0542 Results 24 hrs Laboratory Tests Test 01/24/19 05:42 White Blood Count 7.7 Red Blood Count 3.73 L Hemoglobin 11.7 L Hematocrit 33.9 L Mean Corpuscular Volume 90.9 Mean Corpuscular Hemoglobin 31.4 Mean Corpuscular Hemoglobin Concent 34.5 Red Cell Distribution Width 13.2 Platelet Count 238 Mean Platelet Volume 10.4 Immature Granulocytes % 1.600 H Neutrophils % 83.0 H Lymphocytes % 8.0 L Monocytes % 7.1 Eosinophils % 0.0 Basophils % 0.3 Nucleated Red Blood Cells % 0.0 Immature Granulocytes # 0.120 H Neutrophils # 6.4 Lymphocytes # 0.6 L Monocytes # 0.6 Eosinophils # 0.0 Basophils # 0.0 Nucleated Red Blood Cells # 0.0 Sodium Level 139 Potassium Level 4.5 Chloride Level 103 Carbon Dioxide Level 27 Anion Gap 9 Blood Urea Nitrogen 22 H Creatinine 0.79 Est Glomerular Filtrat Rate mL/min > 60 Glucose Level 164 Calcium Level 8.6 Medications Current Medications IV Flush (NS 3 ml) 3 ml PER PROTOCOL IV ; Start 01/19/19 at 17:00 Ondansetron HCl (Zofran Inj) 4 mg Q6H PRN IV NAUSEA/VOMITING Last administered on 01/21/19 02:54; Admin Dose 4 MG; Start 01/19/19 at 17:00 Enoxaparin Sodium (Lovenox) 40 mg DAILY SC Last administered on 01/24/19 08:29; Admin Dose 40 MG; Start 01/20/19 at 09:00 Losartan Potassium (Cozaar) 50 mg DAILY PO Last administered on 01/24/19 08:23; Admin Dose 50 MG; Start 01/20/19 at 09:00 Ibuprofen (Motrin) 200 mg Q6H PRN PO MILD PAIN(1-3) OR TEMP>38C Last administered on 01/21/19 16:12; Admin Dose 200 MG; Start 01/19/19 at 18:30 Levalbuterol (Xopenex Neb) 1.25 mg Q4H RESP THERAPY PRN HHN sob; Start 01/20/19 at 16:30 Ipratropium [place] (Atrovent 0.02% (Neb)) 0.5 mg Q4HWA RESP THERAPY HHN Last administered on 01/24/19 12:53; Admin Dose 0.5 MG; Start 01/20/19 at 17:00 Levalbuterol (Xopenex Neb) 1.25 mg Q4HWA RESP THERAPY HHN Last administered on 01/24/19 12:53; Admin Dose 1.25 MG; Start 01/20/19 at 17:00 Clonidine (Catapres) 0.1 mg Q4H PRN PO sbp>160; Start 01/20/19 at 16:30 Methylprednisolone Sodium Succinate (Solu-Medrol) 40 mg Q6 IV Last administered on 01/24/19 11:11; Admin Dose 40 MG; Start 01/21/19 at 15:00 Magnesium Hydroxide (Milk Of Mag) 30 ml Q4H PRN PO CONSTIPATION Last administered on 01/24/19 01:34; Admin Dose 30 ML; Start 01/23/19 at 21:30 Levofloxacin (Levaquin) 750 mg DAILY@06 NGT Last administered on 01/24/19 11:11; Admin Dose 750 MG; Start 01/24/19 at 11:00; Stop 01/30/19 at 10:59 Doxycycline Hyclate (Vibramycin) 100 mg BID PO Last administered on 01/24/19at 11:11; Admin Dose 100 MG; Start 01/24/19 at 11:00; Stop 01/30/19 at 10:59 Assessment/Plan Hospital Course (Demo Recall) IMP: 1.NADYA pneumonia--superimposed on background of centrilobular emphysema. Lack of leukocytosis unusual though fever curve encouraging. RECS: 1. Abx as per ID 2. Advised against travel any time soon 3. Needs repeat chest imaging in 4-6 weeks. Agree with DC planning today. CHLOE CASILLAS MD, [facility] Jan 24, 2019 13:26
== END 2019-01-24 16:01 | disposition home or self-care (01) | DRG 871 ==
LOC: E/R 13:08 → 6WM 15:53 → EDBEDREQSVC 16:32
PROVIDERS: ADMIT Internal Medicine; ATTEND Internal Medicine
DX: A41.9 Sepsis, unspecified organism (principal); J18.1 Lobar pneumonia, unspecified organism; J96.90 Respiratory failure, unspecified, unspecified whether with hypoxia or hypercapnia; N39.0 Urinary tract infection, site not specified; E66.9 Obesity, unspecified; Z68.31 Body mass index [BMI] 31.0-31.9, adult; I10 Essential (primary) hypertension; J43.2 Centrilobular emphysema; B96.20 Unspecified Escherichia coli [E. coli] as the cause of diseases classified elsewhere
CPT/HCPCS: 36415; 71045; 71250; 74176; 80048; 80053; 80061; 81001; 82550; 82553; 82962; 83036; 83605; 83735; 83880; 84100; 84145; 84153; 84154; 84484; 85025; 85610; 85651; 85730; 86140; 86480; 86606; 86635; 86703; 87070; 87081; 87086; 87449; 93005; 94640; 94664; 94667; 94668; 96374; J0456; J0692; J0696; J1650; J2405; J2920; J7030